=== PATIENT | female | born 1990 | race Caucasian/White ===

== ENCOUNTER 2018-03-22 13:07 | Inpatient (IN) | payer BC ==
[~2018-03-22] VITALS: Ht 165.1 cm; Wt 118.3 kg
[~2018-03-22 13:07] MED LIST: BUTALB-ACETAMI1 EAC2 PO; CITALOPRAM HBR40 MG PO; CYCLOBENZAPRINE10 MG PO; DICLOFENAC SODI75 MG PO; GEMFIBROZIL600 MG PO; LAMOTRIGINE100 MG PO; LEVOTHYROXINE100 MCG PO; NAPROXEN500 MG PO; NORCO 5-325 TA1 EACH PO; OMEPRAZOLE40 MG PO; TRAMADOL HCL50 MG PO
[2018-03-22] MEDS ORDERED: MONO-LINYAH1 EACH PO (13:36)
--- NOTE | 2018-03-22 19:54 | NUR ---
KACEY FROM [facility], CALLED AT 1947, STATING THAT THE TRIGLYCERIDE LABS DUE TO PATIENT HAVING "LIPEMIC CELLS". NOTIFIED DR FRIAS, ORDER WAS DC'D UNCOLLECTABLE AT THIS TIME.
--- NOTE | 2018-03-22 20:11 | NUR ---
PT ARRIVES TO [place] FLOOR VIA STREATCHER WITH NURSING STAFF. C/O 4-5 PAIN IN UPPER ABDOMEN, ABDOMEN TENDER THROUGHOUT W PALPATION, BOWEL TONES HYPOACTIVE X 4. PT ALERT AND ORIENTED. LUNGS CLEAR THROUGHOUT, HR REGULAR. VITALS WNL, AFEBRILE. PT ORIENTED TO ROOM, IV FLUSHED WNL, PT C/O DISCOMFORT WITH SITE, MARQUISE DURANT TO START NEW IV. CALL LIGHT IN REACH.
--- NOTE | 2018-03-22 20:38 | NUR ---
PRN DILAUDID ADMINISTERED AT THIS TIME FOR PT REPORTED 8/10 PAIN WITH MOVEMENT, 5/10 AT REST, PT ANXIOUS, BREATHING SHALLOW, QUICK. NEW IV STARTED IN RIGHT FOREARM, NS BOLUS INFUSING WNL AT THIS TIME. PT HAS CALL LIGHT IN REACH, GIVEN SWAB FOR DRY MOUTH, EDUCATED ON NPO DIET, PT VERBALIZES UNDERSTANDING.
--- NOTE | 2018-03-22 22:49 | NUR ---
CHECKED ON PT, IV NS BOLUS INFUSING WNL. TOOTHBRUSH PROVIDED, ORAL CARE COMPLETE. PT RATES PAIN 3-4/10 IN LOWER ABD AT THIS TIME. CALL LIGHT IN REACH, MOTHER IN ROOM. MOTHER GIVEN WATER NO ADDL REQUESTS.
--- NOTE | 2018-03-23 00:11 | NUR ---
CALL LIGHT ANSWERED, PT C/O 04/10 ABD PAIN, WINCING, HOLDING LOWER ABD. PRN DILAUDID IV ADMINISTERED, PRN ZOFRAN ADMINISTERED FOR NAUSEA. FAMILY IN ROOM. QUESTIONS ANSWERED REGARDING HOSPITAL COURSE, WRITTEN AND VERBAL EDUCATION PROVIDED. CALL LIGHT IN REACH.
--- NOTE | 2018-03-23 00:45 | NUR ---
IV PUMP BEEPING, NS BOLUS COMPLETE. IVF INFUSING WNL. CALL LIGHT IN REACH, PT LYING IN BED, AWAKE, DROWSY. MOTHER AT BEDSIDE.
--- NOTE | 2018-03-23 02:25 | NUR ---
CHECKED ON PT, APPEARS TO BE SLEEPING, EYES CLOSED, BREATHING NON-LABORED, IVF INFUSING.
--- NOTE | 2018-03-23 03:45 | NUR ---
CHECKED ON PT, PT C/O 4/10 ABD PAIN AT THIS TIME, ASSISTED PT TO REPOSITION IN BED. BOWEL TONES ACTIVE X 4, ABD SOFT, TENDER W PALPATION. LUNGS CLEAR THROUGHOUT, HR REGULAR. IVF INFUSING WNL. CALL LIGHT IN REACH.
--- NOTE | 2018-03-23 04:15 | NUR ---
CALL LIGHT ANSWERED, PT C/O 04/10 PAIN IN UPPER ABD, BACK, PRN DILAUDID ADMINISTERED, PT GIVEN WARM PACK FOR ABD. PT NAUSEOUS, SMALL AMT EMESIS. GIVEN ICE PACK, COOL WASH CLOTH. DRIBBLING URINE, SBA TO RESTROOM FOR VOID, ATTENDS NOW IN PLACE. CHUX AND PILLOW CASES CHANGED. CALL LIGHT IN REACH, NO ADDL REQUESTS.
--- NOTE | 2018-03-23 06:23 | NUR ---
PAIN CONTROLLED W PRN DILAUDID, PRN ZOFRAN FOR PT REPORTED NAUSEA, EMESIS X 1. BOWEL TONES ACTIVE, ABD SOFT, TENDER THROUGHOUT. IVF INFUSING THROUGHOUT SHIFT WNL. SBA. NPO.
--- NOTE | 2018-03-23 06:37 | NUR ---
CHECKED ON PT, APPEARS TO BE SLEEPING, SNORING, EYES CLOSED, BREATHING VISIBLE CHEST RISE EQUAL BILATERALLY. IVF INFUSING WNL.
--- NOTE | 2018-03-23 08:14 | NUR ---
PT AWAKE IN BED REPORTING EPIGASTRIC PAIN 8/10 AND NAUSEA. MEDICATED WITH IV DILAUDID AND ZOFRAN. PT FAMILY IN ROOM VISITING. DR. FRIAS IN [facility] TO SPEAK WITH PT AND FAMILY. PT ALERT AND ORIENTED. CALL LIGHT WITHIN REACH.
--- NOTE | 2018-03-23 10:05 | NUR ---
PT TAKING SMALL SIPS OF CLEAR LIQUIDS, NYLA WELL SO FAR, DENIES NAUSEA. CALL LIGHT WITHIN REACH.
--- NOTE | 2018-03-23 10:45 | NUR ---
PATIENT STATES THAT SHE WOULD LIKE TO SHOWER WHEN HER MOM BRINGS HER SHOWERING SUPPLIES. VISITOR IN ROOM. NO OTHER NEEDS AT THIS TIME.
--- NOTE | 2018-03-23 12:10 | NUR ---
PT HAD EPISODE OF EMESIS AFTER RECIEVING DILAUDID. NOTIFIED DR. FRIAS. NO NEW ORDERS AT THIS TIME. GAVE PT AN ORANGE PEPPERMINT AROMATAB. PT STATES SHE FEELS BETTER AFTER VOMITING, EATING JELLO AND DRINKING JUICE AT THIS TIME. CALL LIGHT WITHIN REACH.
--- NOTE | 2018-03-23 14:26 | NUR ---
PT REPORTS FEELING BETTER. HAS HAD VISITORS IN ROOM MOST OF DAY. SITTING UP IN BED DENIES NEED FOR PAIN MEDS AT THIS TIME. CALL LIGHT WITHIN REACH.
[2018-03-23] MEDS ORDERED: TUMS200 MG PO (15:49)
[2018-03-23] MEDS ORDERED: NORCO 5-325 TA1 EACH PO (15:49)
--- NOTE | 2018-03-23 15:49 | NUR ---
MED REC COMPLETE
[2018-03-23] MEDS ORDERED: TRICOR145 MG PO (15:58)
[2018-03-23] MEDS ORDERED: RA FISH OIL 1,1 EAC2 PO (15:58)
[2018-03-23] MEDS ORDERED: METFORMIN HCL500 M1 PO (16:00)
[2018-03-23] MEDS ORDERED: ATORVASTATIN CA20 MG PO (16:00)
--- NOTE | 2018-03-23 16:00 | NUR ---
PT ASKED ME TO COME TO HER ROOM AFTER DISCHARGE ROUNDS. I WENT TO ROOM PT HAD A QUESTION FOR ME ABOUT HER HOSPITAL BILL, STATING THAT SHE IS CONCERNED ABOUT THE BILL BECAUSE SHE IS HAVING FINANCIAL DIFFICULTIES AND IS WORRIED ABOUT NOT BEING ABLE TO PAY HER HOSPITAL BILL. I TOLD HER SHE COULD TALK WITH THE ADMISSIONS AND BILLING PEOPLE AND THEY COULD HELP HER WITH PAYMENT ARRANGEMENTS OR SEE IF SHE WOULD BE ELIGIBLE FOR ISHA MEDS. ASSURED HER THAT RIGHT NOW SHE NEEDED TO WORRY ABOUT GETTING BETTER.
--- NOTE | 2018-03-23 16:23 | NUR ---
PT RESTING IN BED WITH EYES CLOSED, RESP EVEN AND UNLABORED.
--- NOTE | 2018-03-23 17:20 | NUR ---
PT MEDICATED WITH IV DILAUDID FOR C/O 6/10 EPIGASTRIC PAIN. CONT TO NYLA CLEARS WELL. MOTHER AND BOYFRIEND AT BEDSIDE. PT SBA IN ROOM. CALL LIGHT WITHIN REACH.
--- NOTE | 2018-03-23 20:00 | NUR ---
RECEIVED REPORT AT 1900, PT WAS IN SHOWER AT TIME OF REPORT.
--- NOTE | 2018-03-23 20:27 | NUR ---
VITALS AND I&OS DONE AND CHARTED. CLEANED UP BATHROOM FROM HER SHOWER. TOOK COVER OFF OF HER IV. BEDSIDE TABLE AND CALL LIGHT WITHIN REACH. PT REQUESTED MORE PAIN MEDS. I INFORMED HER NURSE
--- NOTE | 2018-03-23 20:40 | NUR ---
VITALS AND I&OS DONE AND CHARTED. FRESH ICE WATER GIVEN BEDSIDE TABLE AND CALL LIGHT WITHIN REACH.
--- NOTE | 2018-03-23 22:00 | NUR ---
IV SITE HAD TO BE D/C DUE TO PAIN. ABD PAIN WAS 7/10. PT SO FAR HAD 200ML EMESIS X1. V/S ARE WDL, ALL LOBES ARE CLEAR. ABD SOUNDS ARE HYPOACTIVE, ABD IS TENDER TO TOUCH BUT NOT FIRM OR DISTENDED. NO NEW CONCERNS AT THIS TIME.
--- NOTE | 2018-03-24 | NUR ---
PT IS SLEEPING AT THIS TIME.
--- NOTE | 2018-03-24 02:00 | NUR ---
PT IS SLEEPING.
--- NOTE | 2018-03-24 04:00 | NUR ---
PT IS SLEEPING AT THIS TIME.
--- NOTE | 2018-03-24 06:12 | NUR ---
PT OVERALL HAD AN UNEVENTFUL NIGHT. PAIN ONLY RECEIVED DILAUDED 1MG X2 THIS SHIFT. PT HAD EMESIS X1 THIS SHIFT. ABD SOUNDS ARE PRESENT, ABD IS TENDER TO TOUCH AND SLIGHTLY FIRM ACROSS THE MIDDLE. V/S ARE WDL, ALL LOBES ARE CLEAR. PT IS TOLERATING CLEAR LIQUID DIET WELL. NO NEW CONCERNS AT THIS TIME.
--- NOTE | 2018-03-24 06:41 | NUR ---
VITALS AND I&OS DONE AND CHARTED. COFFEE GIVEN TO HER MOTHER WHO IS IN HER ROOM. BEDSIDE TABLE AND CALL LIGHT WITHIN REACH. PICKED UP TOWELS IN THE BATHROOM AND EMPTIED ALL GARBAGES. PT NEEDS NOTHING ELSE AT THIS TIME.
--- NOTE | 2018-03-24 08:30 | NUR ---
SN assisted patient choose low fat foods for her morning room tray. Pt is now sitting up in bed eating breakfast with family in the room. She reports having a slight stabbing sensation in the lower abdomen. She denies the need for pain medication at this time. Call light is within reach.
--- NOTE | 2018-03-24 08:55 | NUR ---
PT GIVEN HANDOUT ON FOODS NOT TO EAT WITH A LOW FAT DIET. EXPLAINED TO PATIENT AND FAMILY THAT IS AT THE BEDSIDE THAT IF SHE DOES NOT STICK TO THIS DIET AND TAKE HER MEDICATIONS PRESCRIBED SHE WILL HAVE PAIN, NAUSEA AND VOMETING. IT APPEARS THAT NO ONE IN THE ROOM TRUELY UNDERSTAND THE DEPTH OF THE PATIENT ILLNESS. DUE TO THE COMENT OF " WHEN I AM BETTER I CAN EAT WHAT I WANT". EXPLAINED THAT IF SHE DOES NOT CHANGE HER EATTING HABITS THAT IT INCREASES HER RISK FOR HEART ATTACK AND OR STROKE. 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
--- NOTE | 2018-03-24 10:31 | NUR ---
PATIENT NOW ON A LOW-FAT DIET. HER MOM IS IN ROOM. PATIENT AWAKE, ALERT. NURSING BROUGHT IN SOME INFORMATION WITH ONLY 10 FOODS TO AVOID WHILE ON A LOW-FAT DIET. I BROUGHT IN A 5-DAY SAMPLE MENU FOR LOW-FAT DIET AND A PRINTOUT FROM THE [place] ON FAT-RESTRICTED NUTRITION THERAPY WHICH PROVIDES A LIST OF FOODS RECOMMENDED AND FOODS NOT RECOMMENDED. PATIENT DOESN'T COOK MUCH, SO SHE NEEDS IDEAS FOR MEALS THAT ARE QUICK WITH MINIMAL PREPARATION. I THINK PATIENT WILL BE MINDFUL OF FATTY FOODS FOR THE NEXT WEEK OR TWO, BUT LONG-TERM SHE WILL NEED REINFORCEMENT ON HOW TO MAKE BETTER CHOICES AND BUILD HEALTHY MEALS. HOPEFULLY HER MOM WILL HELP KEEP HER ON TRACK.
--- NOTE | 2018-03-24 10:50 | NUR ---
Patient and her mother had a consultation with the dietary specialist at 1030. Pt then requested that she would like to go for a small walk because her lower extremeties were sore from laying in bed. SN assisted pt down the hodges. When returning to pt's room, she used the restroom and was able to have a BM. She is currently resting in the recliner in her room. She states that she feels better after the BM however is still feeling more gassy than normal and a little sore in the lower abdomen. She denies the need for her pain or nausea medication.
--- NOTE | 2018-03-24 12:24 | NUR ---
AFRTER BATHING FLUSHED CATHETER WITH 30 ML SALINE PER NURSE'S ORDER, PATIENT IN BED, WATCHING TV. REFUSED LUNCH, STILL FINISHING ENSURE FROM BREAKFAST. PATIENT WAITING FOR VISIT FROM . BED RAILS UP, CALL LIGHT WITHIN REACH.
--- NOTE | 2018-03-24 13:22 | NUR ---
THIS PT IS BEING FOLLOWED BY [facility] AND HER INSTRUCTOR. AT THIS TIME PT IS SITTING UP IN BED WATCHING TV. HAS NO C/O'S AT THIS TIME. IV WAS ALARMING, PHARMACY INFORMED THAT A NEW BAG IS REQUIRED AT THIS TIME.
--- NOTE | 2018-03-24 13:48 | NUR ---
REPORTED OFF TO ADONAY CAMARILLO, ALL QUESTIONS ANSWERED AT THIS TIME. ALSO [facility] STUDENT NURSE TIMO OF THE CHANGE WITH RN'S.
--- NOTE | 2018-03-24 14:30 | NUR ---
PT SITTING UP IN BED, ALERT AND ORIENTED. SHE MENTIONED THAT SHE IS FEELING BETTER-DIAGNOSED WITH PANCREATITIS. SHE HOPES TO ATTEND HER COUSINS [facility] IN [facility]. EXPENDED A BLESSING, [employer] STUDENT IN
--- NOTE | 2018-03-24 15:09 | NUR ---
Late entry 1400. Attempted to start new bag of IV fluids and pt complained of stinging in IV site when flush was used. IV site was assessed for patency with no blood return. Patient continued to complain of stinging of IV site in right forearm so a new IV site was attempted. Nursing staff working on insertion.
--- NOTE | 2018-03-24 17:50 | NUR ---
PATIENT IN BED, EATING DINNER. MOM IN ROOM. VITALS AND I/OS CHARTED. PATIENT IS NOT VERY PLEASANT THIS EVENING, ACTUALLY YELLING OUT BECAUSE THE BP CUFF WAS TOO TIGHT. MOTHER AT BEDSIDE TO EXPLAIN THE PROCEDURE AND REASSURE PATIENT. CALL LIGHT IN REACH NO OTHER NEEDS
--- NOTE | 2018-03-24 19:30 | NUR ---
RECIEVED REPORT FROM DAY SHIFT NURSE. PT IN BED. UP TO BATHROOM WTIH SBA. REPORTED BLOOD IN STOOL. ASSESSED. APPEARS THE PT HAS STARTED HER PERIOD. CLEANED UP AND GAVE YEIMY PAD. REPORTS NO OTHER NEEDS A THIS TIME. INFORMED ME OF CURRENT PAIN STATING, "THE PAIN MEDS I GOT DIDN'T FEEL LIKE IT HELPED MY PAIN." CALL LIGHT WITHIN REACH. MOTHER AND FAMILY AT BEDSIDE.
--- NOTE | 2018-03-24 19:50 | NUR ---
PT REPORTED PAIN 6/10 IN ABDOMEN. REPORTED LAST PAIN MEDICATION GIVEN "DIDN'T WORK". 2 TABS NORCO GIVEN. CALL LIGHT WTIHIN REACH.
--- NOTE | 2018-03-24 20:00 | NUR ---
TALKED TO DOCTOR FRIAS ABOUT PT IV ACCESS AND IV PROTONIX DUE. ORDERED TO DC PROTONIX AT THIS TIME. PROTONIX HAS BEEN DC'D.
--- NOTE | 2018-03-24 21:50 | NUR ---
PT MOTHER REPORTED PT WAS HAVING CHILLS AND FELT HOT. TEMP TAKEN WAS 99.4. HAD PT USE INCENTIVE SPEROMETER. RECHECKED TEMP WAS 98. DECREASED ROOM TEMP AND REMOVED BLANKET FROM PT. INCOURAGE PO FLUID INTAKE AND DEEP BREATHING. CALL LIGHT WITHIN REACH. REPORTS NO OTHER NEEDS AT THIS TIME.
--- NOTE | 2018-03-25 | NUR ---
MOTHER OF PT REPORTED SHE WAS WORRIED ABOUT THE PT GETTING SICKER WHILE IN HOSPITAL BECAUSE OF SMALL TEMP INCREASED. EDUCATED MOTHER ON DISEASE PROCESS AND IMMUNE RESPONES. ENCOURAGED IS AND TOLE PT MOTHER WE WOULD TAKE ANOTHER TEMP AND 0000 FOR HER COMFORT. ANTHONY GRACIA REPORTED TEMP OF 98. MOTHER IS RELIEVED AND SAID SHE WILL GET SOME SLEEP NOT. REASSURED WE WOULD KEEP HER INFORMED IF NEEDED THROUGHOUT THE NIGHT. CALL LIGHT WITHIN REACH.
--- NOTE | 2018-03-25 00:13 | NUR ---
TOOK PTS TEMP.
--- NOTE | 2018-03-25 01:55 | NUR ---
VITALS DONE AND CHARTED. FRESH ICE PACK GIVEN. BEDSIDE TABLE AND CALL LIGHT WITHIN REACH. MOM IN ROOM. PT NEEDS NOTHING ELSE AT THIS TIME.
--- NOTE | 2018-03-25 02:28 | NUR ---
PT APPEARS TO BE SLEEPING. MOTHER AT BEDSIDE. RESPIRATIONS EQUAL AND NONLABORED. TEMP WAS REPORTED TO ME 98.0 CALL LIGHT WITHIN REACH.
--- NOTE | 2018-03-25 04:05 | NUR ---
ASSESSMENT COMPLETED. NO CHANGES. PAIN REPORTED 3/10. CALL LIGHT WITHIN REACH. RESPIRATONS ARE EQUAL AND NONLABORED. WET CLOTH FOR NECK PROVIDED. ICE PACK ON HEAD.
--- NOTE | 2018-03-25 05:29 | NUR ---
PT SLEPT WELL THROUGHOUT THE NIGHT. NO IV. COMPLAINED OF HEADACHE. ICE PACK AND COLD RAG GIVEN. PRN NORCO GIVEN @ 1999 FOR ABDOMINAL PAIN. 04/10. PAIN HAS BEEN 01/18 THERAFTER. PT STARTED MENSTERAL CYCLE LAST NIGHT. ATTENS AND PERIPAD IN PLACE. NEEDS ENCOURAGEMENT TO BE INDEPENDENT. LABS THIS AM FOR TRIGLYCERIDES, LIPASE, CBC AND MET. PLAN TO DC TODAY. PT WORRIED ABOUT NOTE FOR WORK.
--- NOTE | 2018-03-25 08:00 | NUR ---
PATIENT GIVEN MORNING MEDICATION. BREAKFAST TAKEN IN TO ROOM. PATIENT SITTING UP IN BED. TOLERATING A LOW FAT DIET WELL.
--- NOTE | 2018-03-25 08:02 | NUR ---
Morning assessment completed. Pt is sitting up in bed now eating breakfast with mother in room. Pt is eating cereal, fruit, and jello. Education given on low fat diets and planning meals. Pt currently has minor complaints of pain in lower abdomen and bowel tones are slightly hypoactive. She is experiencing pain in her neck and a mild headache. Fresh ice pack given for the headache. Pt denied the need for any pain medication at this time. Call light within reach and no other complaints at this time.
--- NOTE | 2018-03-25 08:20 | NUR ---
DR. FRIAS ROUNDED IN ROOM. PLAN TO DISCHARGE PATIENT HOME.
[2018-03-25] MEDS ORDERED: GEMFIBROZIL600 MG PO (08:51)
--- NOTE | 2018-03-25 09:15 | NUR ---
PATIENT REQUESTING THAT WORK RELEASE BE FAXED TO WORK. FAXED SIGNED WORK RELEASE TO WORK CONFIRMATION COMPLETE. DISCHARGE EDUCATION WENT OVER WITH STUDENT SO SHE COULD ASSIST WITH DISCHARGE INSTRUCTIONS. PATIENT AMBULATED IN [place]. REQUESTING [place] 2 TABS BEFORE DISCHARGE.
--- NOTE | 2018-03-25 09:32 | NUR ---
PHARMACY IN ROOM TO GO OVER MEDICATION FOR DISCHARGE.
--- NOTE | 2018-03-25 10:41 | NUR ---
VISITED WITH PT ON WAY OUT DURING DC. HER MOTHER WAS WITH HER, AND PT WAS RATHER QUIET. SHE DID STOP TO VISIT WITH [employer]. THIS SEEMED TO CHEER HER SOME. SHE SHOOK MY HAND SHE WENT BY-I EXTENDED A BLESSING.
--- NOTE | 2018-03-25 11:22 | NUR ---
Late entry for 45. SN assisted pt on a short distance walk in hallway then assisted pt into her personal clothing and helped gather belongings to prepare for discharge. Pt expressed concerns about pain management after discharge, SN educated on medication treatment and rest at home. Pt expressed that the [place] was effectively reducing abdomen pain and that her pain had decreased overall since the previous day. Pt was prepared and looking forward to discharge and had no further questions for nursing staff.
--- NOTE | 2018-03-25 11:30 | NUR ---
Late entry for 744. Morning assessment completed by SN but documented under instructors login. Instructor notified.
== END 2018-03-25 10:05 | disposition home or self-care (01) | DRG 439 ==
LOC: ED 13:07 → MS 19:13
PROVIDERS: ADMIT Internal Medicine
DX: K85.80 Other acute pancreatitis without necrosis or infection (principal); Z68.41 Body mass index [BMI] 40.0-44.9, adult; E78.1 Pure hyperglyceridemia; E88.81 Metabolic syndrome and other insulin resistance; E66.01 Morbid (severe) obesity due to excess calories; M54.9 Dorsalgia, unspecified; G89.29 Other chronic pain; E78.00 Pure hypercholesterolemia, unspecified; E03.9 Hypothyroidism, unspecified; K21.9 Gastro-esophageal reflux disease without esophagitis; Z91.14 Patient's other noncompliance with medication regimen; Z79.891 Long term (current) use of opiate analgesic; Z79.899 Other long term (current) drug therapy; Z79.3 Long term (current) use of hormonal contraceptives
CPT/HCPCS: 36415; 74177; 76705; 80048; 80053; 83690; 83735; 84478; 84703; 85025; 96361; 96374; 96375; 99285; J1170; J1650; J2405; J3010; J3480; J7030; J7120; Q9967

== ENCOUNTER 2018-04-07 19:04 | Emergency (ER) | payer BC ==
[~2018-04-07] VITALS: Ht 165.1 cm; Wt 117.9 kg
[~2018-04-07 19:04] MED LIST changes: +ATORVASTATIN CA20 MG PO; +METFORMIN HCL500 M1 PO; +MONO-LINYAH1 EACH PO; +RA FISH OIL 1,1 EAC2 PO; +TRICOR145 MG PO; +TUMS200 MG PO
[2018-04-07] MEDS ORDERED: CEPHALEXIN500 MG PO (23:38)
== END 2018-04-08 00:10 | disposition home or self-care (01) ==
LOC: ED 19:04
DX: R10.13 Epigastric pain (principal); E78.00 Pure hypercholesterolemia, unspecified; E03.9 Hypothyroidism, unspecified; K21.9 Gastro-esophageal reflux disease without esophagitis; F41.9 Anxiety disorder, unspecified; Z88.8 Allergy status to other drugs, medicaments and biological substances; Z79.899 Other long term (current) drug therapy
CPT/HCPCS: 36415; 80053; 81001; 83690; 84703; 85025; 87088; 96374; 96376; 99283; J2405

== ENCOUNTER 2023-11-18 16:21 | Inpatient (IN) | payer BC ==
[~2023-11-18] VITALS: Ht 165.1 cm; Wt 125.1 kg
[~2023-11-18 16:21] MED LIST changes: +AMOXICILLIN875 MG PO; +CEPHALEXIN500 MG PO; +ONDANSETRON ODT8 MG PO
[2023-11-18] MEDS ORDERED: ESCITALOPRAM OX10 MG PO (16:49)
[2023-11-18] MEDS ORDERED: FOLIC ACID0.8 M1 PO (16:50)
[2023-11-18] MEDS ORDERED: PRENATAL 19 CH1 EAC1 PO (16:51)
[2023-11-18] MEDS ORDERED: METHYLPREDNISOLO8 MG PO (16:53)
[2023-11-18] MEDS ORDERED: PROGESTERO50 MG/1 ML IM (16:54)
[2023-11-18] MEDS ORDERED: TOPIRAMATE50 MG PO (16:54)
[2023-11-18] MEDS ORDERED: ASPIRIN81 MG PO (16:55)
[2023-11-18 17:22] LABS: HEMATOCRIT 34.4 % (35.0-50.0); HEMOGLOBIN 15.8 g/dL (12.0-18.0); MCH 36.6 (27-36); MCV 79.9 fl (81-99); PLATELET COUNT 430 K/uL (140-440); RDW 15.5 (10.5-15.0)
[2023-11-18 18:00] LABS: MCHC 33.5 g/dl (30-36)
[2023-11-18 18:07] LABS: LYMPHOCYTES, MANUAL DIFF 10; MONOCYTES, MANUAL DIFF 3; NEUTROPHILS, MANUAL DIFF 87
[2023-11-18 18:09] LABS: ALBUMIN/GLOBULIN RATIO 0.61 (1.1-2.4); ALKALINE PHOSPHATASE 57 U/L (46-116); BILIRUBIN, TOTAL 0.4 ng/dL (0.2-1.0); CHLORIDE 102 mmol/L (98-107); POTASSIUM 4.1 mmol/L (3.5-5.1); PROTEIN, TOTAL 7.9 g/dL (6.4-8.2); UREA NITROGEN 9 mg/dL (7-18)
[2023-11-18 18:28] LABS: ALT (SGPT) 28 U/L (14-59); AST (SGOT) 31 U/L (15-37); BUN/CREATININE RATIO 14.51 (6.0-28.6); CALCIUM 8.8 mg/dL (8.5-10.1); CREATININE, SERUM 0.62 mg/dL (0.55-1.02); GLOMERULAR FILTRATION RATE,EST 120 mL/min (>60)
[2023-11-18 18:34] LABS: ANION GAP 33.1 (7-21); CARBON DIOXIDE 7 mmol/L (21-32)
[2023-11-18 19:41] LABS: CHOLESTEROL 283 mg/dL (<200); CHOLESTEROL/HDL RATIO 11.3; HDL CHOLESTEROL 25 (40-60)
[2023-11-18 19:43] LABS: TRIGLYCERIDES 1896 ng/dL (<150)
[2023-11-18 20:01] LABS: LACTIC ACID, BLOOD 2.5 mmol/L (0.4-2.0)
[2023-11-18 20:11] LABS: BILIRUBIN, URINE NEGATIVE (negative); BLOOD/HGB, URINE NEGATIVE (Negative); KETONE, URINE >=80 (Negative); LEUK ESTERASE, URINE NEGATIVE (negative); NITRITE, URINE NEGATIVE (negative)
[2023-11-18 20:18] LABS: EPITHELIAL CELLS, URINE SQUAMOUS 4+ /lpf (0-1+)
[2023-11-18 20:19] LABS: BACTERIA, URINE RARE /hpf (negative); CASTS, URINE NONE SEEN \\lpf; CRYSTALS, URINE NONE SEEN (0-1+); RED BLOOD CELLS, URINE 0-1 /hpf (0-5); REFLEX CULTURE, URINE No (No)
[2023-11-18 21:12] LABS: PH, VENOUS 7.465 (7.31-7.41)
[2023-11-18 21:59] VITALS: BP 135/91
[2023-11-18 22:00] VITALS: BP 105/90
--- NOTE | 2023-11-18 22:54 | NUR ---
2199 PATIENT ARRIVED TO THE UNIT PATIENT IS PAINFUL AND SORE; MORE WITH MOVEMENT. PATIENT RECEIVING IV FLUID BOLUS. PATIENT REPORTS PAIN 7/10 AND IS MOANING OCCATIONALLY WITH PAIN. MILD NAUSEA ON ARRIVAL. ORAL SWABS PROVIDED. 2229 PATIENT BECAME SEVERELY NAUSEAOUS AND VOMITED MULTIPLE TIMES. DISCUSSED WITH ; ORDERS RECEIVED FOR COMPAZINE AND ZOFRAN. PATIENT PREVIOUSLY RECEIVED RECEIVED ZOFRAN IN ED; SO COMPAZINE GIVEN. LAB IN FOR REPEAT LACTIC WHICH WAS DRAWN FROM IV SITE DUE TO LIMITED ACCESS AND LAB BEING UNABLE TO DRAW. PATIENT WAS INCONTINENT OF URINE WITH EMESIS. ASSISTED PATIENT UP TO THE BEDSIDE TO CHANGE UNDERWEAR AND REPLACE JUAN PABLO PAD. PATIENT TOLERATED WELL. RETURNED TO BED. REPORTS PAIN 8/10. PRN DILAUDID PROVIDED. PATIENT NOW RESTING IN BED MORE COMFORTABLY. VS STABLE. IV BOLUS INFUSING, SITE WNL X1. CALL LIGHT IN REACH. PATIENT'S MOTHER AT BEDSIDE, NOW LEAVING FOR THE NIGHT.
--- NOTE | 2023-11-18 23:16 | NUR ---
PATIENT RESTING WITH EYES CLOSED. WOKE WHEN RN WAS IN ROOM. REPORTED DOING BETTER AND DENIED ANY NEEDS AT THIS TIME. LIGHTS DIMMED. CALL LIGHT IN REACH. IV FLUIDS PER ORDER, SITE WNL.
[2023-11-19] VITALS (10 sets, daily range): BP systolic 107–138; BP diastolic 70–93
--- NOTE | 2023-11-19 01:22 | NUR ---
PATIENT REPORTS 7/10 PAIN, WORSE WITH MOVEMENT AND MODERATE NAUSEA. PRN TORADOL GIVEN AND ZOFRAN. PATIENT REPOSITIONED IN BED. EMESIS BAG IN HAND. HOB ELEVATED.
--- NOTE | 2023-11-19 03:18 | NUR ---
PATIENT REPORTS DIFFICULTY FALLING ASLEEP AND FEELS RESTLESS. ASSISTED PATIENT UP TO THE BSC, PATIENT FEELS UNABLE TO WALK INTO BATHROOM. PATIENT VOIDED AND RETURNED TO BED WITH ONLY CORD MANAGEMENT NEEDS. PATIENT VOIDED 500 MLS YELLOW URINE. PATIENT REQUEST PAIN MEDS FOR PAIN 06/10. DENIED NAUSEA. PATIENT PROVIDED PRN DILAUDID PER ORDER, PUSHED OVER AN EXTENDED TIME TO REDUCE GI UPSET. PATIENT DID EXPERIENCE NAUSEA AFTER THIS AND HAD ABOUT 50 MLS OF EMESIS. EMESIS IS YELLOW BILE COLOR. PATIENT PROVIDED WET WASH CLOTHS PER REQUEST AND ASSISTED TO POSITION FOR COMFORT. CALL LIGHT IN REACH. IV FLUIDS PER ORDER, SITE WNL. VS STABLE.
--- NOTE | 2023-11-19 05:09 | NUR ---
PATIENT REPORTS ONGOING NAUSEA ; PRN COMPAZINE PROVIDED PER ORDER.
[2023-11-19 05:31] LABS: PLATELET COUNT 353 K/uL (140-440); RDW 15.4 (10.5-15.0)
[2023-11-19 05:50] LABS: MAGNESIUM 1.5 mg/dL (1.8-2.4); POTASSIUM 3.8 mmol/L (3.5-5.1)
[2023-11-19 06:18] LABS: ANION GAP 23.8 (7-21); BUN/CREATININE RATIO 14.28 (6.0-28.6); CREATININE, SERUM 0.49 mg/dL (0.55-1.02)
[2023-11-19 06:19] LABS: CALCIUM 5.9 mg/dL (8.5-10.1)
[2023-11-19 06:35] LABS: HEMATOCRIT 34.9 % (35.0-50.0); MCH 26.9 (27-36); MCHC 33.1 g/dl (30-36); MCV 81.2 fl (81-99)
[2023-11-19 06:36] LABS: HEMOGLOBIN 11.6 g/dL (12.0-18.0)
[2023-11-19 06:41] LABS: BANDS, MANUAL DIFF 2; LYMPHOCYTES, MANUAL DIFF 4; MONOCYTES, MANUAL DIFF 2; NEUTROPHILS, MANUAL DIFF 92
[2023-11-19 06:42] LABS: BASOPHILS, MANUAL DIFF 0; EOSINOPHILS, MANUAL DIFF 0
--- NOTE | 2023-11-19 07:30 | NUR ---
[facility]. PATIENT HAS CALL LIGHT AND CALLS APPROPRIATELY. PATIENT RESTING IN BED AT THIS TIME.
--- NOTE | 2023-11-19 07:38 | NUR ---
PATIENT LABS REPORTS TO
--- NOTE | 2023-11-19 08:18 | NUR ---
UR NOTE [facility] PANCREATITIS: OBSERVATION CARE (ISC)
[2023-11-19 08:58] LABS: TSH, 3RD GENERATION 0.106 uIU/mL (0.358-3.740)
--- NOTE | 2023-11-19 09:00 | NUR ---
PATIENT CALLED AND REQUESTED TO GET UP AND VOID PATIENT STATES "IM GOING TO NEED THAT CAMMODE" EDUCATED PATIENT WE COULD USE BEDSIDE CAMMODE THIS TIME BUT IT IS VERY IMPORTANT TO INCREASE ACTIVITY TO DECREASE CHANCES FOR BLOOD CLOTS. PATIENT AGREEABLE TO PLAN OF CARE. PATIENT UP AND TRANSFERED TO [facility] ON HER OWN WITH CORD MANAGEMENT. PATIENT TOLERATED WELL. PATIENT NOW SITTING UP IN THE CHAIR. MEDICATIONS PROVIDED FOR PAIN. PATIENT RATES PAIN 5/10 WITH ACTIVITY 8/10. PATIENT BREATH SOUNDS CLEAR. BOWEL TONES ACTIVE. TENDER ABD. VITALS STABLE.
--- NOTE | 2023-11-19 09:05 | NUR ---
PATIENT HAD 200MLS EMESIS WITH MEDICATION ADMINISTRATION THIS AM. PATIENT PROVIDED WITH WASH CLOTH. NO MEDICATINS NOTED IN EMESIS BAG. NEW CLEAN BAG PROVIDED. PATIENT NOW RESTING.
--- NOTE | 2023-11-19 09:55 | NUR ---
PATIENT CONTINUES TO REST IN THE CHAIR SINCE AM PRN PAIN MEDICATIONS. VITALS STABLE AND PATIENT EASILY AROUSABLE. PATIENT REPORTS PAIN IS IMPROVED WITH MEDICATIONS.
--- NOTE | 2023-11-19 11:06 | NUR ---
ROUNDS. PT APPEARED TO BE SLEEPING. DID NOT DISTURB. PROVIDED SILENT PRAYER.
--- NOTE | 2023-11-19 12:15 | NUR ---
THIS RN IN TO ASSIST PATIENT UP AND WALK. PATIENT WALKED APROX 15 FEET TOTAL AND THEN INTO THE BATHROOM. PATIENT WAS PROVIDED WITH WARM WASH CLOTH THIS AM AND SUPPLIES TO BRUSH HER TEETH. PATIENT COMPLAINGING OF DRY MOUTH AND EDUCATED THIS WOULD HELP HER MOUTH. PATIENT REFUSING TO DO CARES. LEFT TOOTH BRUSH AT THE BEDSIDE. PATIENT COMPLAINS OF DRY MOUTH AND EXTREME HUNGER AT THIS TIME. EDUCATED PATIENT ON PLAN OF CARE AND THAT I WOULD UPDATE MD BUT PATIENT IS NPO.
--- NOTE | 2023-11-19 12:40 | NUR ---
PATIENT STATEING "IM GOING TO IF I DONT GET SOME FOOD AND WATER". THIS RN SPOKE WITH PROVIDER AND UPDATED ON PLAN OF CARE AND PATIENTS STATEMENT. PER MD PATIENT CAN HAVE FROM ICE CHIPS TO HELP WITH HER DRY MOUTH/THIRST. PATIENT RECIEVING IV FLUIDS. EDUCATED PATIENT ON IV FLUIDS AND REASON MD DOES NOT WANT TO INCREASE DIET. PATIENTS LABS REMAIN ELEVATED, ABD PAIN PRESENT, PATIENT HAD 200MLS EMESIS THIS AM. PATIENT AGREEABLE TO PLAN OF CARE. PATIENT ALSO STATES SHE SPOKE WITH HER SPEACIALIST FOR IVF TREATMENT AND HER APT FOR WEDNESDAY WAS CANCELLED. PATIENT RESTING IN BED WITH CALL LIGHT IN REACH.
--- NOTE | 2023-11-19 12:50 | NUR ---
Spoke with Aida. She states she lives in town with her mom and family. She does not have issues getting in or out of her home. There is ramp. She does not use any DME. No issues cooking, shopping, or cleaning, and no finacial issues. Pt states she has had problems and hospitalization in the past for pancreatic problems. She plans on dc to home when cleared medically. She denies any needs and will go home with her family.
--- NOTE | 2023-11-19 13:31 | NUR ---
REPORT RECEIVED FROM JUNIOR CAMARILLO - PT RESTING IN BED ON BACK WITH EYES CLOSED, DOES NOT OPEN THEM TO ANSWER QUESTIONS. REPORTS NAUSEA AFTER ICE CHIPS. PRN ADMINISTERED. PT RATES PAIN /10. CALL LIGHT IN REACH.
[2023-11-19] MEDS ORDERED: BUSPIRONE HCL5 MG PO (14:01)
[2023-11-19] MEDS ORDERED: NORGESTIMATE-E1 EACH PO (14:01)
[2023-11-19] MEDS ORDERED: LEVOTHYROXINE200 MCG PO (14:02)
[2023-11-19] MEDS ORDERED: ESTRADIOL40 MG/1 ML IM (14:03)
[2023-11-19] MEDS ORDERED: ENDOMETRIN100 MG PV (14:06)
--- NOTE | 2023-11-19 14:15 | NUR ---
PT USES CALL LIGHT TO REQUEST MORE ICE CHIPS. PT EDUCATED ON NAUSEA INDUCED BY PREVIOUS ATTEMPTS OF EATING ICE CHIPS RELATED TO PANCREATITIS. PT STATES UNDERSTANDING. ENCOURAGED PT TO USE ICE CHIPS SPARINGLY TO MOISTEN MOUTH AND NOT TO EAT LIKE A MEAL.
--- NOTE | 2023-11-19 15:29 | NUR ---
PRN TORADOL ADMINISTERED FOR 4/10 ABDOMINAL PAIN. MOTHER AT BEDSIDE. PT LAYING IN BED WITH TOWEL ON FOREHEAD.
--- NOTE | 2023-11-19 16:51 | NUR ---
PT USES CALL LIGHT TO REQUEST ICE CHIPS - PROVIDED. SITTING ON EDGE OF BED. MOTHER AT BEDSIDE.
--- NOTE | 2023-11-19 18:07 | NUR ---
RN ROUNDING ON PT - RESTING IN BED ON BACK WITH EYES CLOSED. DOES NOT AWAKEN WHEN IN ROOM SPEAKING WITH MOTHER. MOTHER STATES PT AMBULATED UP IN ROOM FOR SHORT PERIOD.
--- NOTE | 2023-11-19 18:30 | NUR ---
PT USES CALL LIGHT TO REQUEST PAIN MEDICATION FOR 4/10 PAIN. DILAUDID ADMINISTERED. PT QUICKLY BECAME NAUSEATED AND 150ML EMESIS PRODUCED. ZOFRAN ADMINISTERED. PT NOW SITTING UP ON BED WATCHING TV AND LAUGHING. MOTHER AT BEDSIDE.
--- NOTE | 2023-11-19 19:58 | NUR ---
PATIENT RESTING IN BED EYES CLOSED, PATIENT OPENS EYES AND ALERT TO RN AT BEDSIDE, WHEN ASKED HOW ARE YOU FEELING? PATIENT "I FEEL PRETTY GOOD RIGHT NOW, COULD I HAVE SOME ICE CHIPS?" 1/2 CUP ICE CHIPS PROVIDED, ASSESSMENT COMPLETE.
--- NOTE | 2023-11-19 21:48 | NUR ---
PATIENT SITTING AT SIDE OF BED, SHE RPEORTS NO PAIN OR NAUSEA AT THIS TIME. HER MOTHER IS AT BEDSIDE, THIS RN PROVIDED LINEN SET AND MADE BED UP, ALSO PROVIDED, ICE PACKS FOR HER FOOD. PATIENT IS EATING ICE CHIPS FOR COMFORT AT THIS TIME.
--- NOTE | 2023-11-19 22:49 | NUR ---
PATIENT REPORTS THAT SHE IS NOT HAVING AND PAIN OR NAUSEA, SHE REPORTS SHE HAS TINGLING IN HER HANDS, THIS HAS BEEN ON GOING ALL DAY. PATIENT'S MOM HAS MANY QUESTIONS, THIS RN ADDRESSED ALL QUESTIONS AND DISCUSSED LABS.
--- NOTE | 2023-11-19 23:07 | NUR ---
CALLED TO REPORT NUMBNESS AND TINGLING IN HANDS PER PATIENT, NEW ORDERS FOR BMP AND MG NOW.
--- NOTE | 2023-11-19 23:12 | NUR ---
ROUNDED IN PATIENT ROOM TO DISCUSS PLAN TO DRAW LABS NOW, DUE TO CONCERNS OF NUMBNESS AND TINGLING IN HANDS.
[2023-11-20] VITALS (12 sets, daily range): BP systolic 106–138; BP diastolic 56–90
[2023-11-20 00:15] LABS: ANION GAP 20.1 (7-21); BUN/CREATININE RATIO 15.94 (6.0-28.6); CARBON DIOXIDE 18 mmol/L (21-32); CHLORIDE 103 mmol/L (98-107); CREATININE, SERUM 0.69 mg/dL (0.55-1.02); GLOMERULAR FILTRATION RATE,EST 117 mL/min (>60); POTASSIUM 5.1 mmol/L (3.5-5.1); UREA NITROGEN 11 mg/dL (7-18)
--- NOTE | 2023-11-20 00:16 | NUR ---
NEW IV SITE ESTABLISHED AT LEFT FA, REMOVED IV SITE AT RIGHT FA PATIENT REPORTS STINGING AND NOTED REDNESS PROXIMAL TO IV SITE.
[2023-11-20 00:20] LABS: CALCIUM <5.0 mg/dL (8.5-10.1)
--- NOTE | 2023-11-20 00:42 | NUR ---
CALLED AND ORDERED MORE LABS.
--- NOTE | 2023-11-20 01:07 | NUR ---
AT NURSES STATION REVIEWING LABS WITH PRESIDENT ERGONOMIC CONSULTING. PATIENT HAS NOT VOIDED YET THIS SHIFT, ATTEMPT TO BLADDER SCAN, UNABLE OBTAIN READING LIKELY DUE TO SIZE OF ABD. PATIENT UP TO BEDSIDE COMMODE, DISCUSSED WITH PATIENT THAT WILL LIKELY ORDER STRAIGHT CATH IF SHE IS UNABLE TO VOID. PATIENT SAID "I THINK I CAN GO, I JUST NEED A FEW MINUTES"
--- NOTE | 2023-11-20 02:45 | NUR ---
SECOND IV SITE ESTABLISHED. ACCU CHECK DONE. INSULIN STARTED PER ORDER. VERIFIED WITH SECOND RN. LIGHTS DIMMED PER PATIENT REQUEST. CALL LIGHT IN REACH.
--- NOTE | 2023-11-20 03:32 | NUR ---
PATIENT REQUESTS PAIN MEDICATIONS FOR PAIN 4/10 AT LOWER ABDOMEN. SHE REPORTS HER HANDS ARE NOT NUMB OR TINGLING AT THIS TIME. INSULIN INFUSING AND ACCU CHECKS Q15 MIN. FOR FIRST HOUR THEN Q1 HOUR PER ORDERS. PATIENT ADMINISTERED DILAUDID PRN AT THIS TIME FOR ABDOMEN PAIN. MOTHER AT BEDSIDE FOR SUPPORT.
[2023-11-20 05:55] LABS: ANION GAP 14.9 (7-21); BUN/CREATININE RATIO 14.51 (6.0-28.6); CARBON DIOXIDE 22 mmol/L (21-32); CHLORIDE 101 mmol/L (98-107); CREATININE, SERUM 0.62 mg/dL (0.55-1.02); GLOMERULAR FILTRATION RATE,EST 120 mL/min (>60); POTASSIUM 3.9 mmol/L (3.5-5.1); UREA NITROGEN 9 mg/dL (7-18)
[2023-11-20 05:59] LABS: CALCIUM <5.0 mg/dL (8.5-10.1)
--- NOTE | 2023-11-20 06:21 | NUR ---
TALKED WITH , UPDATED ON LAB AND TREND OF BEDSIDE BLOOD GLUCOSE CHECKS. NEW ORDER FOR REPLACEMENT CALCIUM, AND TO ADMINISTERED D50 AMPS NEED TO TREAT HYPOGLYCEMIA.
--- NOTE | 2023-11-20 07:13 | NUR ---
PATIENT HAD 100ML EMESIS, SHE REPORTS NO WARNING OR NAUSEA, PATIENT ADMINISTERED ZOFRAN PRN, TORDOL PRN FOR PAIN 4/10 LOWER ABD. SHE IS ALERT AND ORIENTED, MOTHER AT BEDSIDE. DISCUSSED AM LABS AND CARE PLAN.
--- NOTE | 2023-11-20 07:30 | NUR ---
SHIFT REPORT RECIEVED FROM RADIAL DRILL PRESS SET UP OPERATOR RN. PATIENT RESTING IN BED AT THIS TIME. PATIENT AWAKE WHEN STAFF CHECKED IN. PATIENT STATES "IM FEELING A LITTLE BETTER TODAY, DO YOU THINK THE DR WILL LET ME EAT TODAY". UDATED THAT I WOULD BE IN TO ASSESS HER AND UPDATE MD THIS AM.
[2023-11-20 08:07] LABS: BASOPHILS 0.2 % (0-2); EOSINOPHILS 0.4 % (0-6); HEMOGLOBIN 11.9 g/dL (12.0-18.0)
[2023-11-20 08:14] LABS: HEMATOCRIT 34.3 % (35.0-50.0); LYMPHOCYTES 5.7 % (24-44); MCH 28.2 (27-36); MCHC 34.7 g/dl (30-36); MCV 81.1 fl (81-99); MONOCYTES 2.6 % (0-12); NEUTROPHILS 91.1 % (39-80); PLATELET COUNT 441 K/uL (140-440); RBC 4.23 M/ul (4.3-5.7); RDW 16.3 (10.5-15.0)
[2023-11-20 08:29] LABS: ANION GAP 15.1 (7-21); BUN/CREATININE RATIO 14.03 (6.0-28.6); CARBON DIOXIDE 22 mmol/L (21-32); CHLORIDE 102 mmol/L (98-107); CREATININE, SERUM 0.57 mg/dL (0.55-1.02); GLOMERULAR FILTRATION RATE,EST 122 mL/min (>60); POTASSIUM 4.1 mmol/L (3.5-5.1); UREA NITROGEN 8 mg/dL (7-18)
[2023-11-20 08:33] LABS: CALCIUM <5.0 mg/dL (8.5-10.1)
--- NOTE | 2023-11-20 10:09 | NUR ---
pt c/o pain. reports 3/10 lower abd pain. upon entering the room, pt resting with eyes closed, no grimacing, face relaxed, vitals wnl. prn tylenol given, pt requesting dilaudid instead. educated pt on medications used for pain control based on severity along with side effects and cons to using opiod medications for mild pain. pt verbalizes understanding, informed pt that her primary rn will be in shortly and will readress her pain. call light within reach, bed in lowest locked position
--- NOTE | 2023-11-20 11:10 | NUR ---
PATIENTS BLOOD SUGAR 76. PATIENT REQUESTING PAIN MEDICATION BUT WANTING SOMETHING LESS THAN DILAUDID. PATIENT HAD TYLENOL 1 HOUR AGO. DISCUSSED PATIENTS BLOOD SUGAR AND PAIN MEDICATIONS WITH MD PEREZ. INCREASED D10 TO 100MLS/HR PER MD AND WILL CHECK LABS AT NOON AND WILL CHANGE TO PO MEDICATIONS IF LAB IMPROVEMENT. PATIENT UPDATED. PER MD CAN GIVE TORADOL EARLY IF NEEDED. PATIENT UPDATED ON PLAN OF CARE.
--- NOTE | 2023-11-20 11:45 | NUR ---
THIS RN ASSISTED PATIENT TO BATHROOM. PATIENT CALLED AND STATED, "IM NOT FEELING VERY GOOD, I HAVE NUMBNESS IN MY FEET AND FEEL OFF". ASSISTED PATIENT BACK TO BED AND CHECKED PATIENTS BLOOD SUGAR. PATIENTS BLOOD SUGAR 60. STOPPED INSULIN GTT. GAVE 25MLS D50% PER ORDERS AND UPDATED MD PEREZ. WILL KEEP INSULIN OFF AT THIS TIME AND MONITOR FOR IMPROVEMENT IN GLUCOSE. PATIENT ALSO LOST LEFT ARM IV SITE. GRISEL CAMARILLO WILLL BE IN TO LOOK FOR PLACEMENT OF A MIDLINE. PATIENT AND HER MOM AGREEABLE TO PLAN OF CARE.
--- NOTE | 2023-11-20 13:35 | NUR ---
PATIENTS BLOOD SUGAR RECHECKED. LABS SENT. RESTARTED INSULIN GTT PER PROTOCOL. NO FURTHER QUESTIONS AT THIS TIME. PATIENT HAS MULTIPLE VISITORS IN THE ROOM AT THIS TIME.
[2023-11-20 13:57] LABS: ANION GAP 11.1 (7-21); BUN/CREATININE RATIO 11.26 (6.0-28.6); CREATININE, SERUM 0.71 mg/dL (0.55-1.02); POTASSIUM 4.1 mmol/L (3.5-5.1)
--- NOTE | 2023-11-20 14:27 | NUR ---
CALL PLACED TO DR PEREZ WITH AFTERNOON LABS. ORDER TO GIVE CALCIUM GLUCANATE AND PO PAIN MEDS ORDERED FOR PRN USE.
--- NOTE | 2023-11-20 15:00 | NUR ---
MD WAS UPDATED BY WINDY CAMARILLO OF LABS AND PATIENTS CONDITION. NEW ORDERS PLACED AND PATIENTS PRN PAIN MEDICATION AND CALCIUM IV STARTED. PATIENT SITTING UP AT THE BEDFSIDE. FAMILY LEFT AT THIS TIME. PATIENTS MOM REMAINS AT THE BEDSIDE. PATIENT DENIES ANY NEEDS AT THIS TIME. CALL LIGHT IN REACH. WILL BE IN TO CHECK BS.
--- NOTE | 2023-11-20 16:00 | NUR ---
MD IN UNIT TO CHECK ON PATIENTS BLOOD SUGARS AFTER RESTARTING THE INSULIN GTT. PATIENT IS TOLERATING WELL. UPDATED MD THAT PATIETNS WBC HAVE CONTINUED TO INCREASE TODAY. NEW LABS PLACED FOR IN THE AM. PATIENT ALSO NOTED TO HAVE A LOW GRADE TEMP AT 1520 OF 99.4.
--- NOTE | 2023-11-20 18:11 | NUR ---
LAB ORDERS PLACED PER MD DISCUSSION. 3 HOME MEDICATIONS RESTARTED PER MD VERBAL ORDERS. PATIENT IS SITTING IN BED VISITING WITH HER MOM AT THE BEDSIDE. PROVIDED PATIENT WITH APPLE JUICE AND CHICKEN BROTH. PATIENT DENIES ANY OTHER NEEDS AT THIS TIME.
--- NOTE | 2023-11-20 18:55 | NUR ---
PATIENT REQUESTED PRN PAIN MEDICATION. PATIENT RESTING IN BED. PATIENTS MOM AT THE BEDSIDE.
--- NOTE | 2023-11-20 19:35 | NUR ---
PATIENTS BLOOD SUGAR 66. 25MLS D50 GIVEN PER ORDERS. PATIENT FEELS LOW. PATIENT DRINKING SOME JUICE IN ADDITION TO MEDICATIONS. PATIENTS INSULIN GTT STOPPED AT THIS TIME. UPDATED RN KATYA OF RESULTS AND WILL NEED PRN CHECK IN 10 MINUTES.
--- NOTE | 2023-11-20 20:00 | NUR ---
UPDATED ON BEDSIDE ACCUCHECKS, START OF SHIFT LOW 66, DAYSHIFT GAVE 1/2 AMP D50, REPEAT WAS 133. GAVE ORDER TO INCREASE D10 TO 125ML/HR AND DECREASE LR TO 75ML/HR
[2023-11-20 20:30] LABS: ANION GAP 15.6 (7-21); CREATININE, SERUM 0.7 mg/dL (0.55-1.02); POTASSIUM 3.6 mmol/L (3.5-5.1)
[2023-11-20 20:33] LABS: CALCIUM 5.2 mg/dL (8.5-10.1)
--- NOTE | 2023-11-20 21:10 | NUR ---
PATIENT VOMITED AFTER TAKING HS MEDICATIONS INCLUDING NORCO, IDENTIFIED NORCO AND ONE SMALL ROUND PILL IN EMESIS BAG. GAVE PRN IV PAIN AND NAUSEA MEDICATIONS. ROUNDED IN ROOM, UPDATED.
--- NOTE | 2023-11-20 22:32 | NUR ---
PATIENT RESTING QUIELTY IN BED, EYES CLOSED RESPIRATION REGULAR 20/MIN NO DISTRESS NOTED. PATIENTS MOTHER IS RESTING ON COUCH BED IN ROOM.
[2023-11-21] VITALS (14 sets, daily range): BP systolic 119–142; BP diastolic 63–82
--- NOTE | 2023-11-21 02:00 | NUR ---
PATIENT RESTING IN BED, ALERT BUT DROWSY TO RN AT BEDSIDE FOR BEDSIDE ACCUCHECK AND TO DRAW BLOOD FROM LINE FOR 0200 LABS. PATIENT DID NOT REPORT ANY PAIN OR NAUSEA AT THIS TIME. PATIENTS MOTHER IS RESTING ON COUCH BED IN ROOM.
[2023-11-21 02:35] LABS: ANION GAP 11.4 (7-21); CREATININE, SERUM 0.6 mg/dL (0.55-1.02); POTASSIUM 3.4 mmol/L (3.5-5.1)
[2023-11-21 02:37] LABS: CALCIUM 5.5 mg/dL (8.5-10.1)
--- NOTE | 2023-11-21 02:57 | NUR ---
CALLED TO NOTIFY OF CRITICAL VALUE AND UPDATE ON PATIENT STATUS, INCLUDING INCREASE IN PVC ON HEART MONITOR. NEW ORDERS RECEIVED.
--- NOTE | 2023-11-21 03:19 | NUR ---
PATIENT REPORTS PAIN IN HER LOWER ABDOMEN 6/10, NORCO PRN PROVIDED.
--- NOTE | 2023-11-21 04:54 | NUR ---
JORDAN CATHETER PLACED DUE TO LOW URINE OUT, UNABLE TO BLADDER SCAN DUE TO BODY DYNAMICS, PATIENT REPORTS INCREASED PAIN THIS SHIFT IN LOWER ABDOMEN. STERILE FIELD MAINTAINED THROUGHOUT PROCEDURE, RN INTO ASSIST MEHDI ROONEY NURSE ON THIS SHIFT. PATIENT TOLERATED WELL.
[2023-11-21 05:29] LABS: BASOPHILS 0.2 % (0-2); EOSINOPHILS 0.6 % (0-6); HEMATOCRIT 27.7 % (35.0-50.0); HEMOGLOBIN 9.5 g/dL (12.0-18.0); LYMPHOCYTES 7.4 % (24-44); MCHC 34.3 g/dl (30-36); MCV 81.6 fl (81-99); MONOCYTES 2.6 % (0-12); NEUTROPHILS 89.2 % (39-80); PLATELET COUNT 308 K/uL (140-440); RDW 16.1 (10.5-15.0)
[2023-11-21 05:45] LABS: ALBUMIN 1.7 g/dL (3.4-5.0); ALBUMIN/GLOBULIN RATIO 0.45 (1.1-2.4); ANION GAP 12.2 (7-21); BILIRUBIN, TOTAL 0.3 ng/dL (0.2-1.0); BUN/CREATININE RATIO 7.93 (6.0-28.6); CREATININE, SERUM 0.63 mg/dL (0.55-1.02); POTASSIUM 3.2 mmol/L (3.5-5.1); PROTEIN, TOTAL 5.5 g/dL (6.4-8.2)
--- NOTE | 2023-11-21 08:00 | NUR ---
ASSESSMENT COMPLETE - LOWER ABD PAIN RATING 5/10. POSITIVE BOWEL TONES. INSULIN DRIP CONTINUES AT RATE OF 11/U HOUR. MAG REPLACEMENT COMPLETE, POTASIUM AND CALCIUM REPLACEMENT STARTED - WILL REPEAT LABS IN 2 HOURS. JORDAN DRAINING QUANTITY SUFFICIENT YELLOW URINE. MOTHER AT BEDSIDE.
--- NOTE | 2023-11-21 08:30 | NUR ---
PT REQUESTS PAIN MEDICATIN FOR 5/10 LOWER ABD PAIN - NORCO ADMINISTERED. PT VOMITING LESS THAN 5 MINUTES AFTER. NO PILLS NOTED IN EMESIS BAG. MD UPDATED.
--- NOTE | 2023-11-21 09:00 | NUR ---
HOURLY CBG 82 - INSULIN DRIP PAUSED FOR 30 MIN. PT RESTING IN BED ON BACK WITH EYES CLOSED. DENIES NEEDS. CALL LIGHT IN REACH.
--- NOTE | 2023-11-21 10:30 | NUR ---
PT BACK FROM CT - TOLERATED THE PROCEDURE WITH MODERATE PAIN WHEN TRANSFERING TO AND FROM CT TABLE. PRN DILAUDID ADMINISTERED FOR 7/10 ABD PAIN - 0.5MG ADMINISTERED TO PREVENT NAUSEA EXPERIENCED WITH PREVIOUS DOSES. PT ASSISTED TO SHOWER - BED LINENS CHANGED AND JORDAN CARE COMPLETED. BACK TO BED WITH MOTHER AT BEDSIDE.
--- NOTE | 2023-11-21 11:30 | NUR ---
UPDATED ON CT RESULTS AND PERSISTANT HOURLY CBG'S LESS THAN 100. ORDERS RECEIVED TO INCREASE IV D10 RATE TO 150ML/H, AND DECREASE IV LR RATE TO 50ML/H - ENTERED. INSULIN RATE REMAINS AT 11U PER HOUR. PT CURRENTLY RATES HER PAIN A 5/10 IN LOWER ABD.
--- NOTE | 2023-11-21 12:20 | NUR ---
PT RESTING IN BED WITHOUT DISTRESS WATCHING FOOTBALL ON TV. ASSESSMENT UNCHANGED.
--- NOTE | 2023-11-21 13:21 | NUR ---
PT REMAINS RESTING IN BED COMFORTABLY WITH MOTHER AT BEDSIDE. URINE OUTPUT QS, VITAL SIGNS STABLE. LABS DRAWN FROM PERIPHERAL IV SITE. CBG WNL, NO CHANGES TO IVF OR INSULING DRIP AT THIS TIME.
[2023-11-21 13:40] LABS: ANION GAP 10.7 (7-21); BUN/CREATININE RATIO 4.76 (6.0-28.6); CREATININE, SERUM 0.63 mg/dL (0.55-1.02); POTASSIUM 3.7 mmol/L (3.5-5.1)
[2023-11-21 13:41] LABS: CALCIUM 6.2 mg/dL (8.5-10.1)
--- NOTE | 2023-11-21 14:00 | NUR ---
ROUNDING WITH MD - PARENTS AND PATIENT UNDERSTAND UPDATED POC TO STOP INSULIN DRIP, AMBULATE AND RECHECK LABS APPROPRIATLY. ENCOURAGED PROTIEN INTAKE AND AMBULATION TO MOBALIZE FLUIDS. CT RESULTS DISCUSSED. ALL QUESTIONS ANSWERED.
--- NOTE | 2023-11-21 14:25 | NUR ---
PT AMBULATED HALF OF CCU HALLWAY AND BACK TO BED.
--- NOTE | 2023-11-21 16:30 | NUR ---
PT AMBULATING IN HALLWAY WITH MOTHER.
--- NOTE | 2023-11-21 17:45 | NUR ---
PT BACK TO BED AFTER AMBULATING FULL LENGTH OF HALLWAY - CBG STABLE 4 HOURS POST INSULIN DRIP DC. PT REQUESTS PAIN MEDICATION FOR 5/10 ABD PAIN, PRN TORADOL ADMINISTERED TITRATING TO MAX DOSE FROM EARLIER DOSE. PT SLOWLY DRINKING ENSURE TO AVOID NAUSEA. VS STABLE.
--- NOTE | 2023-11-21 20:05 | NUR ---
PATIENT CALLED TO REPORT FEELING NAUSEA. PATIENT ADMINISTERED HS REGLAN AND ZOFRAN NOW AND THEN PATIENT SAID, "I CAN TAKE ORAL PAIN MEDICATIONS" PATIENT ADMINISTERED ORAL MEDICATIONS AFTER NAUSEA MEDS, SHE THEN BURPED AND BEGAN TO VOMIT ABOUT 150ML OF EMESIS, THIS RN POURED OUT EMESIS INTO BASIN TO CHECK FOR PILLS, NO PILLS IDENTIFIED IN EMESIS. PATIENT NOW RESTING IN BED, NO OTHER NEEDS VERBALIZED, PATIENTS MOTHER LORAIN AT BEDSIDE.
--- NOTE | 2023-11-21 21:00 | NUR ---
PATIENT UP AMBULATING IN HALLS WITH HER MOTHER ELBA, TOLERATING ACTIVITY WELL.
--- NOTE | 2023-11-21 23:25 | NUR ---
PATIENT AWAKE NOW, AFTER HAVING SLEPT 2 HOURS, PATIENT CALLED NURSES STATION TO REQUEST SOMETHING TO EAT, SHE SAID "IM HUNGRY" ASKED PATIENT WAHT SOUNDS GOOD, SHE SAID, "JELLO OR A CHOCOLATE ENSURE." BOTH PROVIDED TO PATIENT, THIS RN REMINDED PATIENT TO EAT AND DRINK SLOW TO HELP PREVENT NAUSEA.
[2023-11-22] VITALS (7 sets, daily range): BP systolic 101–139; BP diastolic 53–72
--- NOTE | 2023-11-22 03:08 | NUR ---
PATIENT CALLED NURSES STATION, THIS RN INTO ROOM, PATIENT REPORTS HER BACK HURTS AND SHE CAN NOT GET COMFORTABLE IN THE BED, THIS RN SAID "IT MIGHT FEEL A LOT BETTER IF YOU COULD CHNAGE POSITIONS" THIS RN ASSISTED IN CHANGING BED POSITIONS WITH MOTORIZED CONTROLS, THEN PATIENT SAID, "I THINK MAYBE I WOULD LIKE TO TRY SITTING IN THE RECLINER." THIS RN ASSISTED PATIENT TO RECLINER AND SET UP HER SIDE TABLE AND IV PUMP. NO OTHER REQUESTS AT THIS TIME BY PATIENT OR HER MOTHER EMILY AT BEDSIDE.
--- NOTE | 2023-11-22 04:30 | NUR ---
ATTEMPTED TO PULL BLOOD FROM IV SITE AND MIDLINE PATIENT IS VERY DIFFICULT DRAW FOR LABS, WAS UNABLE TO DRAW, LAB CALLED, LAB INTO ROOM ONE ATTEMPT, UNABLE TO DRAW BACK BLOOD, LAB WILL TRY AGAIN AT 0500, BED LINENS CHANGED PATIENT BACK TO BED, NEW WARM BLANKET FOR BACK PAIN, PATIENT ASKED FOR DILAUDID FOR PAIN, THIS RN AGREED TO CHECK FOR AVAILABILITY, PATIENT ASKED AGAIN THREE TIMES BEFORE RN WAS ABLE TO PATTERNMAKER PLASTER DIRTY LINENS FROM FLOOR, WILL PROVIDE DILAUDID 1MG IV PRN..SEE EMAR. PATIENTS MOTHER RESTING ON COUCH BED WITH SLEEP MASK ON.
[2023-11-22 05:28] LABS: BASOPHILS 0.2 % (0-2); EOSINOPHILS 0.6 % (0-6); HEMATOCRIT 26.6 % (35.0-50.0); LYMPHOCYTES 6.9 % (24-44); MCH 27.5 (27-36); MCHC 33.7 g/dl (30-36); MCV 81.6 fl (81-99); NEUTROPHILS 88.3 % (39-80); PLATELET COUNT 331 K/uL (140-440); RBC 3.26 M/ul (4.3-5.7); RDW 16.3 (10.5-15.0)
[2023-11-22 05:36] LABS: ALBUMIN 1.9 g/dL (3.4-5.0); ALBUMIN/GLOBULIN RATIO 0.44 (1.1-2.4); ANION GAP 13.5 (7-21); BILIRUBIN, TOTAL 0.5 ng/dL (0.2-1.0); BUN/CREATININE RATIO 8.62 (6.0-28.6); CALCIUM 6.6 mg/dL (8.5-10.1); CREATININE, SERUM 0.58 mg/dL (0.55-1.02); POTASSIUM 3.5 mmol/L (3.5-5.1); PROTEIN, TOTAL 6.2 g/dL (6.4-8.2)
--- NOTE | 2023-11-22 06:42 | NUR ---
DR.BELL LOCKE AT NURSES STATION, UPDATED ON LABS, NEW MEDICATION ORDERS, SEE EMAR.
--- NOTE | 2023-11-22 07:45 | NUR ---
REPORT REC'D FROM MARQUISE ALDANA AND PLAN OF CARE RESUMES. PATIENT CURRENTLY ASLEEP IN CHAIR IN ROOM, AND APPEARS COMFORTABLE. WILL LET PATIENT SLEEP A LITTLE LONGER UNTIL SHE WAKES. PT'S MOTHER EMILY IN ROOM AND DISCUSSED LETTING HER SLEEP A LITTLE LONGER WITH HER. BREAKFAST TRAY BROUGHT INTO ROOM. SP02 IS 95% ON ROOM AIR. RR IS 14, HR 90s SINUS RHYTHM. WILL CONTINUE TO MONITOR.
--- NOTE | 2023-11-22 09:15 | NUR ---
AM ASSESSMENT COMPLETE AND MEDS GIVEN. PT WAS ABLE TO TOLERATE PO MEDS TODAY WITHOUT ANY NAUSEA. PT RATES HER PAIN 5/10 THIS AM AND WAS GIVEN PO PAIN MED (SEE EMAR). PATIENT ALSO WAS ABLE TO HAVE JORDAN D/C WHICH SHE WAS APPRECIATIVE OF. UP TO HALLWAY TO AMBULATE AND CONTINUE TO ENCOURAGE AMBULATION. PT RECEPTIVE TO THIS. ACTIVE BOWEL SOUNDS NOTED. PT REMAINS ON ROOM AIR. DR. PEREZ IN TO SEE PATIENT AND PLAN IS FOR PATIENT TO TRANSFER THE MEDICAL FLOOR.
--- NOTE | 2023-11-22 09:28 | NUR ---
UR NOTE [facility] PANCREATITIS (ISC) INPATIENT 11/19/23 MET CLINICAL INDICATIONS FOR ADMISSION TO INPATIENT CARE GL DAY 1
--- NOTE | 2023-11-22 10:12 | NUR ---
PATIENT WILL TRANSFER TO THE MEDICAL FLOOR ROOM 123 WITHOUT TELEMETRY.
--- NOTE | 2023-11-22 10:30 | NUR ---
Spoke with Aida. She denies needs and states she is feeling "much" better today. Will move to the medical floor later today.
--- NOTE | 2023-11-22 10:37 | NUR ---
ROUNDS. MOTHER PRESENT IN ROOM. PT APPEARED RELUCTANT TO ENGATE IN CONVERSATION; CONSENTED TO PRYAER. PROVIDED SUPPORTIVE PRESENCE; LISTENED EMPATHETICALLY; NORMALIZED EXPERIENCE; EXPLORED COPING MECHANISM; PROVIDED PRAYER.
--- NOTE | 2023-11-22 11:15 | NUR ---
AMBULATES FROM CCU TO ROOM 123 WITH Bill RAMON RN. PATIENT ALERT AND ORIENTED. ASSESSMENT COMPLETED. PAIN 4/10 AT THIS TIME. INFORMED TOO SOON FOR ANALGESIC. VERBALIZES UNDERSTANDING. ICE AND WATER PROVIDED. IS PROVIDED. VITALS OBTAINED. DENIES OTHER NEEDS AT THIS TIME. MOTHER REMAINS AT BEDSIDE. CALL LIGHT IN REACH.
--- NOTE | 2023-11-22 11:20 | NUR ---
BEDSIDE REPORT GIVEN TO MARQUISE GRECO IN ROOM 123. PT ABLE TO AMBULATE TO NEW ROOM. ALL PERSONAL BELONGINGS TAKEN WITH HER.
--- NOTE | 2023-11-22 14:13 | NUR ---
AMBULATING IN HALLWAY. STATES SHE THINKS FOOD WAS "TOO HEAVY" AND NOW SHE IS HAVING INCREASING ABDOMINAL PAIN. REQUESTING CHICKEN BROTH. CHICKEN BROTH PROVIDED. REQUESTING ANALGESIC. NOTIFIED TOO EARLY FOR PAIN MEDICATION AT THIS TIME.
[2023-11-22] MEDS ORDERED: FOLIC ACID1 MG PO (16:01)
--- NOTE | 2023-11-22 16:01 | NUR ---
REQUESTING HEAT PACKS, REMAINS PAINFUL BUT FEELS HEAT HELPS. AMBULATES IN HALLWAY WHILE HEAT PACKS PREPARED. DENIES OTHER NEEDS AT THIS TIME.
[2023-11-22] MEDS ORDERED: FENOFIBRATE160 MG PO (16:04)
--- NOTE | 2023-11-22 16:08 | NUR ---
medications reconciled using pharmacy records and patient interview. Although she has been prescribed fenofibrate, per patient, she had not been taking it, but she plans to restart it
--- NOTE | 2023-11-22 18:29 | NUR ---
PATIENT REQUESTING SOMETHING FOR SLEEP TONIGHT. ATTEMPT TO CONTACT DR. PEREZ, NO ANSWER AT THIS TIME.
--- NOTE | 2023-11-22 19:31 | NUR ---
REPORT RECEIVED FROM DAY SHIFT RN. PT AMB IN [place] INDEPENDENTLY. BACK TO ROOM, NYLA WELL. ALERT AND ORIENTED. WHITE BOARD UPDATED. CALL LIGHT IN REACH.
--- NOTE | 2023-11-22 19:50 | NUR ---
PT REPORTS ABD PAIN 04/10. PRN FOR PAIN ADMIN PER EMAR. ICE CHIPS PROVIDED PER REQUEST. NO FURTHER NEEDS.
--- NOTE | 2023-11-22 21:40 | NUR ---
EVENING ASSESSMENT COMPLETE. SCHEDULED MEDS ADMIN PER EMAR. PT REPORTS ABD PAIN 5/10. PRN FOR PAIN ADMIN PER EMAR. PT DENIES NAUSEA. ABD SOFT. BOWEL TONES ACTIVE. WARM PACK PROVIDED PER REQUEST. MIDLINE IN RIGHT UPPER ARM PULSATILE WITH NS. NO BLOOD RETURN NOTED AT THIS TIME. DRESSING CDI. MOM TO STAY THE NIGHT. LINENS PROVIDED. PT DENIES QUESTIONS OR CONCERNS. CALL LIGHT IN REACH.
--- NOTE | 2023-11-22 23:45 | NUR ---
MD ON FLOOR. PT REQUESTING FREQUENT WARM COMPRESSES. VERBAL ORDER RECEIVED FOR K-PAD.
--- NOTE | 2023-11-23 01:36 | NUR ---
PT UP SITTING IN RECLINER. REPORTS LOWER ABD PAIN 5/10. PRN FOR PAIN ADMIN PER EMAR. ABD ASSESSMENT UNCHANGED. NO FURTHER NEEDS.
--- NOTE | 2023-11-23 03:49 | NUR ---
PT IN BED RESTING WITH EYES CLOSED. RESPIRATIONS EVEN. CALL LIGHT IN REACH.
--- NOTE | 2023-11-23 04:29 | NUR ---
CALL LIGHT ANSWERED. PT REPORTS ABD PAIN 04/10. PRN FOR PAIN ADMIN PER EMAR. PT DENIES NAUSEA. UP TO BR INDEPENDENTLY TO VOID AND ATTEMPT BM WITH NO RESULTS. BACK TO RECLINE. K-PAD TO ABD FOR COMFORT. NO FURTHER NEEDS.
[2023-11-23 05:20] LABS: BASOPHILS 0.4 % (0-2); EOSINOPHILS 1.6 % (0-6); HEMATOCRIT 26.7 % (35.0-50.0); HEMOGLOBIN 9.1 g/dL (12.0-18.0); LYMPHOCYTES 11.7 % (24-44); MCV 82.3 fl (81-99); MONOCYTES 6.1 % (0-12); NEUTROPHILS 80.2 % (39-80); PLATELET COUNT 283 K/uL (140-440); RBC 3.24 M/ul (4.3-5.7)
[2023-11-23 05:31] LABS: ANION GAP 14.8 (7-21); BUN/CREATININE RATIO 13.11 (6.0-28.6); CALCIUM 7.3 mg/dL (8.5-10.1); CREATININE, SERUM 0.61 mg/dL (0.55-1.02); POTASSIUM 3.8 mmol/L (3.5-5.1)
[2023-11-23 05:46] VITALS: BP 127/73
--- NOTE | 2023-11-23 05:57 | NUR ---
PT AMB X 1 LAP AROUND NURSING UNIT INDEPENDENTLY. REQUESTS ENSURE, PROVIDED. BACK TO ROOM. VS AND I&O OBTAINED, WNL. SCHEDULED MEDS ADMIN PER EMAR. K-PAD TO ABD FOR COMOFRT. NO FURTHER NEEDS.
--- NOTE | 2023-11-23 07:21 | NUR ---
REPORT RECEIVED FROM TANA CAMARILLO. PT ASLEEP IN BED WITH RESPIRATIONS GILLIAN AND UNLABORED.
--- NOTE | 2023-11-23 08:34 | NUR ---
PT REPORTS ABDOMINAL PAIN AFTER PASSING LARGE BM. PAIN MEDICATION RECEIVED, SEE EMAR. PT EATS BREAKFAST.
--- NOTE | 2023-11-23 09:07 | NUR ---
pt sitting at side of bed eating breakfast, tolerating well. denies pain increase with eating meal.
[2023-11-23 09:44] VITALS: BP 125/69
--- NOTE | 2023-11-23 09:49 | NUR ---
pt up ambulating in halls, tolerating well.
--- NOTE | 2023-11-23 10:30 | NUR ---
PT ALSEEP WITH RESPIRATIONS EVEN AND UNLABORED.
--- NOTE | 2023-11-23 10:59 | NUR ---
DR PEREZ IN TO VISIT WITH PT ABOUT PLAN TO DC.
--- NOTE | 2023-11-23 10:59 | NUR ---
PERIPHERAL IV TO R) FOREARM AND MIDLINE IN R) ARM BOTH DC'D. CATHETERS INTACT AND DRSG APPLIED. PT REQUESTS TO SHOWER, WILL SET UP.
--- NOTE | 2023-11-23 11:36 | NUR ---
pt showered, tolerated well.
[2023-11-23] MEDS ORDERED: HYDROCODON-ACE1 EAC8 PO (11:50)
[2023-11-23] MEDS ORDERED: QUETIAPINE FUMA25 MG PO (11:51)
== END 2023-11-23 13:10 | disposition home or self-care (01) | DRG 439 ==
LOC: ED 16:21 → CCU 16:22 → MS 11-22 11:15
PROVIDERS: Emergency Medicine; Internal Medicine; ADMIT Internal Medicine; ATTEND Internal Medicine
PROC: 0T9B70Z Drainage of Bladder with Drainage Device, Via Natural or Artificial Opening (ICD-10-PCS; principal; 2023-11-21)
DX: K85.90 Acute pancreatitis without necrosis or infection, unspecified (principal); Z68.41 Body mass index [BMI] 40.0-44.9, adult; E83.51 Hypocalcemia; E66.9 Obesity, unspecified; E78.00 Pure hypercholesterolemia, unspecified; E03.9 Hypothyroidism, unspecified; K21.9 Gastro-esophageal reflux disease without esophagitis; F41.9 Anxiety disorder, unspecified; E87.8 Other disorders of electrolyte and fluid balance, not elsewhere classified; E78.1 Pure hyperglyceridemia; R33.9 Retention of urine, unspecified; Z98.890 Other specified postprocedural states; Z79.899 Other long term (current) drug therapy; Z79.82 Long term (current) use of aspirin; Z79.891 Long term (current) use of opiate analgesic; Z79.890 Hormone replacement therapy; Z79.2 Long term (current) use of antibiotics
CPT/HCPCS: 36415; 36569; 74177; 80048; 80053; 80061; 81001; 82803; 83605; 83690; 83735; 84443; 84478; 84703; 85025; 96361; 96375; 96376; A9270; G0378; G0480; J0612; J0780; J1170; J1790; J1815; J1885; J2405; J2765; J3475; J3480; J3490; J7030; J7060; J7121; Q9967